=== PATIENT | female | born 1955 | race Caucasian/White ===

== ENCOUNTER → 2024-06-27 11:28 | Outpatient (REF) | payer OTHER, SELFPAY | LOC: HWWDC 11:28 | PROVIDERS: ATTENDING PHYSICIAN Family Medicine | DX: Z12.31 Encounter for screening mammogram for malignant neoplasm of breast (principal); M25.562 Pain in left knee | CPT/HCPCS: 73564; 77063; 77067 ==

== ENCOUNTER → 2024-07-02 08:59 | Outpatient (REF) | payer OTHER, SELFPAY | LOC: HWRAD 08:59 | PROVIDERS: ATTENDING PHYSICIAN Family Medicine | DX: Z78.0 Asymptomatic menopausal state (principal) | CPT/HCPCS: 77080 ==

== ENCOUNTER → 2024-07-08 10:03 | Outpatient (REF) | payer OTHER, SELFPAY | LOC: HWRCS 10:03 | PROVIDERS: ATTENDING PHYSICIAN Internal Medicine Cardiovascular Disease | DX: I10 Essential (primary) hypertension (principal); I34.0 Nonrheumatic mitral (valve) insufficiency | CPT/HCPCS: 93306 ==

== ENCOUNTER → 2024-07-11 10:02 | Outpatient (REF) | payer OTHER, SELFPAY | LOC: HWRAD 10:02 | PROVIDERS: ATTENDING PHYSICIAN Family Medicine | DX: E04.1 Nontoxic single thyroid nodule (principal) | CPT/HCPCS: 76536 ==

== ENCOUNTER → 2024-10-22 07:15 | Outpatient (REF) | payer OTHER, SELFPAY ==
[2024-10-22 07:58] VITALS: BP 175/89; BP_SYST 83
== END ==
LOC: RADI 07:15
PROVIDERS: ATTENDING PHYSICIAN Family Medicine
DX: E04.1 Nontoxic single thyroid nodule (principal)
CPT/HCPCS: 88173; 10005

== ENCOUNTER 2025-06-12 12:40 | Emergency (ER) | payer OTHER, SELFPAY ==
[2025-06-12 12:47] VITALS: BP 178/148; BP 208/114
[2025-06-12 13:22] LABS: Hematocrit 40.0 % (37.0-47.0); Hemoglobin 13.5 g/dL (12.0-16.0); Mean Corp Hgb Conc. 33.8 g/dL (33.0-37.0); Mean Corpuscular Volume 85.1 fL (81.0-99.0); Nucleated Red Blood Cells % 0 %; Platelet Count 291 10^3/uL (130-400); Red Cell Dist. Width 12.9 % (11.5-14.5)
[2025-06-12 13:42] LABS: ALT (SGPT) 19 U/L (0-35); AST (SGOT) 23 U/L (14-36); Albumin 4.2 g/dl (3.5-5.0); Alkaline Phosphatase 79 U/L (38-126); Blood Urea Nitrogen 4 mg/dl (7-17); Calcium 9.1 mg/dl (8.4-10.2); Carbon Dioxide 26 mmol/L (22-30); Chloride 104 mmol/L (98-107); Glucose 105 mg/dl (70-99); Potassium 3.9 mmol/L (3.5-5.1); Sodium 137 mmol/L (135-145); Total Protein 7.2 g/dl (6.3-8.2); eGFR > 60.00
[2025-06-12 13:50] LABS: Troponin I < 0.012 ng/ml
[2025-06-12 14:47] VITALS: BP 192/108
[2025-06-12 16:56] VITALS: BP 155/84
[2025-06-12 17:00] VITALS: BP 161/88
--- NOTE | 2025-06-12 17:04 | ED.GENMED ---
History of Present Illness
General
Chief Complaint: Blood Pressure Problem
Source: patient
Exam Limitations: none
Time Seen by Provider: 06/12/25 16:20
Nursing documentation reviewed up to this point in time: agreed with
History of Present Illness
History of Present Illness:
Patient to emergency department with complaint of elevated blood pressure, headache. States that her blood pressure has been elevated for the last week. She had a cardiac ablation done on May 29 for history of A-fib. [place] well until last
week. She states this a.m. her blood pressure was 250/113. She called her primary care provider and was advised to come to the emergency department. She denies any chest pain or pressure. She denies any shortness of breath. States that her son
8 years ago on June 10 from a drug overdose. She is unsure if the anniversary is causing her blood pressure to rise. She has no other complaints.
Past History
Past History
ED Past Medical History: Arrthythmia and HTN
ED Past Surgical History: Appendectomy and Cardiac (Cardiac ablation)
Social History
Tobacco: Non-smoker
Living: with family
Family History
Family History: Negative Early CAD
Review of Systems
Review of Systems
Allergies reviewed?: Yes
All Other Systems: ROS reviewed and negative except as documented in HPI and ROS
Constitutional: Reports no symptoms
EENT: Reports no symptoms
Respiratory: Reports no symptoms
Cardiac: Reports other (Elevated blood pressure readings)
ABD/GI: Reports no symptoms
: Reports no symptoms
Musculoskeletal: Reports no symptoms
Skin: Reports no symptoms
Neurological: Reports headache
Psychiatric: Reports no symptoms
Phy Exam
General Physical Exam
General Presentation: well appearing and no apparent distress
General age: appears stated age
General Skin: warm and dry
General Habitus: normal
General Mental: alert
Cardiovascular Exam
Cardiovascular Exam: regular rate/rhythm and no edema
Pulmonary Exam
Pulmonary Exam: lungs clear and no respiratory distress
Neurological Exam
Neurological Exam: alert, oriented x3, CN II-XII intact, no motor deficits, no sensory deficits, speech normal and normal gait
Musculoskeletal Exam
Musculoskeletal Exam: full ROM and neuro vasc intact
Skin Exam
Skin Exam: normal color, warm/dry and no rash
Psychiatric Exam
Psychiatric Exam: normal mood/affect
Course
Orders/Labs/Results
Orders:
Orders
06/12/25 12:54
Electrocardiogram (*1) Urgent
Reason for Study: Chest Pain
EKG- Treatment ONCE
06/12/25 13:08
Complete Blood Count/With Diff Urgent
Comprehensive Metabolic Panel Urgent
Troponin I Urgent
06/12/25 14:[address] [CT Head W/o Iv Contrast] Urgent
Comment:
Reason For Exam: headache
Abnormal Lab Results
06/12/25
13:08
BUN 4 L mg/dl
(7-17)
Creatinine 0.4 L mg/dL
(0.6-1.0)
Glucose 105 H mg/dl
(70-99)
06/12/25 13:08
06/12/25 13:08
Vital Signs
Initial and Last Documented VS:
Initial Vital Signs
Temp Pulse Resp BP Pulse Ox
98.3 F 85 20 178/148 96
06/12/25 12:47 06/12/25 12:47 06/12/25 12:47 06/12/25 12:47 06/12/25 12:47
Last Documented Vital Signs
Temp Pulse Resp BP Pulse Ox
98.3 F 69 13 160/79 95
06/12/25 12:47 06/12/25 18:00 06/12/25 18:00 06/12/25 18:00 06/12/25 17:07
*Radiology
Radiology exam reviewed: radiology read reviewed
*Pulse Oximetry
SaO2: 95
Oxygen Mode of Delivery: Room air
Patient hypoxic: no
*Critical Care Note
Total Time (30-74mins, 75-104mins- exclusive of procedures): Not Applicable
Update Note
Update Note:
Patient to the emergency department for evaluation of elevated blood pressure readings at home. She also reports headache. States she took her blood pressure this morning approximately 15 minutes after taking her blood pressure medication and the
reading was 250/113. On exam she is awake alert and oriented. Vital signs are stable and she remains afebrile. Blood pressure readings while in the ED have been 150-160 systolic over mid [address] of head was completed, no acute
findings. Neurologically she is at her baseline. Neuroexam is unremarkable. HRR, LCTA. discussed results with her. Recommend that she continue her blood pressure medications as prescribed, close follow-up with PCP. She was given instructions
on signs and symptoms to return to the emergency department and she is agreeable to this plan
ED Attending Note
-
Portions of this chart may have been created with voice recognition software.� Occasional wrong word or��sound alike� substitutions may have occurred due to the inherent limitations of voice recognition software.
Discharge Plan
Departure
Patient Disposition: Home (Routine Discharge)
Date of Disposition: 06/12/25
Time of Disposition: 18:05
Patient with high blood pressure during this ER visit?: No
Condition: Good
Covid-19: Not Applicable
Discharge Problem:
HTN (hypertension)
Instructions: High Blood Pressure (DC)
Prescriptions:
No Action
coenzyme Q10 50 MG tablet,chewable
200 mg PO DAILY
lisinopril 10 MG tablet
10 mg PO DAILY
metoprolol succinate 25 MG tablet extended release 24 hr
25 mg PO BID
rosuvastatin 20 MG tablet
20 mg PO QPM
cholecalciferol (vitamin D3) 1,000 UNITS tablet
1,000 units PO DAILY
pantoprazole 40 MG tablet,delayed release (DR/EC)
40 mg PO BID Qty: 60 1RF
apixaban [Eliquis] 5 MG tablet
5 mg PO BID Qty: 60 0RF
Rx Instructions:
RESUME AFTER DISCUSSION WITH CRYPTOGRAPHIC TECHNICIAN
Referrals:
Jenny Oviedo, DO [Family Provider, Family Practice] - Tomorrow
Activity Restrictions/Additional Instructions:
Follow-up with cardiology next week
Interventions
Interventions:
*General Assessment Last Done: 06/12/25 16:25
*Neglect/Abuse Screening Last Done: 06/12/25 12:47
*ED COVID-19 Vaccine History Last Done: 06/12/25 16:25
*ED Influenza Vaccine History Last Done: 06/12/25 16:25
[facility] Fall Risk Assessment Tool Last Done: 06/12/25 16:25
*Risk Screen - Suicide (C-SSRS) Last Done: 06/12/25 12:47
*Nursing Disposition Last Done: 06/12/25 18:14
ED- Cardiac Assessment Last Done: 06/12/25 16:25
ED- Neurological Assessment Last Done: 06/12/25 16:25
ED- Pulmonary Assessment Last Done: 06/12/25 16:25
Discharge Date and Time
Discharge Date/Time: 06/12/25 18:16
Print Language: [place]
[2025-06-12 17:43] VITALS: BP 168/89
[2025-06-12 18:00] VITALS: BP 160/79
== END 2025-06-12 18:16 | disposition home or self-care (01) ==
LOC: EMR 12:40
PROVIDERS: Emergency Medicine; EMERGENCY PHYSICIAN Emergency Medicine; FAMILY PHYSICIAN Family Medicine
DX: I10 Essential (primary) hypertension (principal); R51.9 Headache, unspecified; I48.91 Unspecified atrial fibrillation; Z91.030 Bee allergy status
CPT/HCPCS: 99284; 70450; 80053; 84484; 85025; 93005